=== PATIENT | female | born 1975 | race Caucasian/White ===

== ENCOUNTER 2017-12-13 08:23 | Day surgery (SDC) | payer BC ==
[~2017-12-13 08:23] MED LIST: Lactated Ringers 1,000 ML IV SCH; Midazolam 1 MG/ML 2 ML SDV ONE; Propofol 200 MG/20 ML SDV ONE; Sodium Chloride 0.9% 10 ML Syringe FLUSH PRN; Sodium Chloride 0.9% 2.5 ML Syringe FLUSH PRN; fentaNYL 100 MCG/2 ML SDV ONE
--- NOTE | 2017-12-13 09:16 | PCM.PREANE ---
Preanesthetic Assessment - Anesthesia/Transfusion/Family Hx Anesthesia History: No Prior Anesthesia Family History of Anesthesia Reaction: No Transfusion History: No Prior Transfusion(s) Intubation History: Unknown - Review of Systems General: No Symptoms Pulmonary: No Symptoms Cardiovascular: No Symptoms Gastrointestinal: Abdominal Pain, Diarrhea Neurological: No Symptoms Other: Reports: None - Physical Assessment NPO Status Date: 12/12/17 NPO Status Time: 21:00 O2 Sat by Pulse Oximetry: 98 Respiratory Rate: 16 Vital Signs: Last Vital Signs Temp 36.8 C 12/13/17 08:48 Pulse 70 12/13/17 08:48 Resp 16 12/13/17 08:48 BP 123/88 12/13/17 08:48 Pulse Ox 98 12/13/17 08:48 Height: 1.5 m Weight: 50.349 kg ASA Class: 2 Mental Status: Alert & Oriented x3 Airway Class: Mallampati = 2 Dentition: Reports: Normal Dentition Thyro-Mental Finger Breadths: 3 Mouth Opening Finger Breadths: 2 ROM/Head Extension: Full Lungs: Clear to Auscultation, Normal Respiratory Effort Cardiovascular: Regular Rate, Regular Rhythm - Lab Values: Laboratory Last Values Urine HCG, Qual NEGATIVE (NEGATIVE) 12/13/17 08:29 - Allergies Allergies/Adverse Reactions: Allergies Allergy/AdvReac Type Severity Reaction Status Date / Time diazepam [From Valium] Allergy Seizure Verified 11/23/17 16:49 - Blood Blood Available: No - Anesthesia Plan Pre-Op Medication Ordered: None - Acknowledgements Anesthesia Type Planned: MAC Pt an Appropriate Candidate for the Planned Anesthesia: Yes Alternatives and Risks of Anesthesia Discussed w Pt/Guardian: Yes Pt/Guardian Understands and Agrees with Anesthesia Plan: Yes PreAnesthesia Questionnaire Gastrointestinal History: Reports: Diverticulosis (diagnosed ove a month ago, improved on antibiotics, discomfort and loose bowel movements still present) Neurological History: Reports: Migraines, Other (See Below) Other Neuro History: gets migranes from low blood sugar, takes Aleve--- hx of motion sickness - Past Surgical History HEENT Surgical History: Reports: Oral Surgery - SUBSTANCE USE Smoking Status *Q: Never Smoker Recreational Drug Use History: No - HOME MEDS Home Medications: Home Meds L.acidoph,Paracasei, B.lactis [Probiotic] 1 cap PO DAILY 11/23/17 [History] Omeprazole 20 mg PO DAILY 11/23/17 [History] Sucralfate 1 gm PO ASDIRECTED 11/23/17 [History] - CURRENT (IN HOUSE) MEDS Current Meds: Current Medications Lactated Ringer's (Ringers, Lactated) 1,000 mls @ 125 mls/hr IV ASDIRECTED COUNTS INCLUDE 234 BEDS AT THE [facility] Last Admin: 12/13/17 08:49 Dose: 125 mls/hr Sodium Chloride (Saline Flush) 10 ml FLUSH ASDIRECTED PRN PRN Reason: Keep Vein Open Sodium Chloride (Saline Flush) 2.5 ml FLUSH ASDIRECTED PRN PRN Reason: Keep Vein Open Sodium Chloride (Saline Flush) 10 ml FLUSH ASDIRECTED PRN PRN Reason: Keep Vein Open Sodium Chloride (Saline Flush) 2.5 ml FLUSH ASDIRECTED PRN PRN Reason: Keep Vein Open Discontinued Medications Fentanyl (Sublimaze) Confirm Administered Dose 100 mcg .ROUTE .STK-MED ONE Stop: 12/13/17 07:38 Midazolam HCl (Versed 1 Mg/Ml) Confirm Administered Dose 2 mg .ROUTE .STK-MED ONE Stop: 12/13/17 07:38 Propofol (Diprivan 20 Ml) Confirm Administered Dose 200 mg .ROUTE .STK-MED ONE Stop: 12/13/17 07:38
[2017-12-13] MEDS ORDERED: Propofol 200 MG/20 ML SDV ONE (10:03)
--- NOTE | 2017-12-13 11:41 | PCM.OPNOTE ---
- General Post-Op/Procedure Note Date of Surgery/Procedure: 12/13/17 Operative Procedure(s): Diagnostic EGD and colonoscopy Findings: Small, red raised area on antrum (appears to be healing ulcer), diverticulosis Pre Op Diagnosis: Diverticulosis, epigastric pain Post-Op Diagnosis: Ulcer, diverticulosis Anesthesia Technique: MAC Condition: Good Free Text/Narrative:: Intake & Output 12/12/17 12/13/17 12/13/17 22:59 06:59 14:59 Intake Total 800 Balance 800
--- NOTE | 2017-12-14 08:49 | OR ---
SURGEON: MANSI DELEON MD DATE OF PROCEDURE: 12/13/2017 PREOPERATIVE DIAGNOSES: 1. Epigastric pain. 2. Diverticulitis. POSTOPERATIVE DIAGNOSES: 1. Lesion of the antrum of the stomach. 2. Diverticulosis. PROCEDURES PERFORMED: Diagnostic esophagogastroduodenoscopy and colonoscopy. ENDOSCOPIST: Mansi Deleon MD. ANESTHESIA: MAC. INSTRUMENTS USED: Olympus endoscope/Olympus colonoscope. EXTENT OF EXAM: To the second portion of duodenum, to the cecum. PREPARATION: Good. LIMITATIONS: None. INDICATIONS FOR EXAMINATION: The patient presents with a history of diverticulitis that was successfully treated with antibiotics earlier this fall. She also complains of some intermittent epigastric abdominal pain. The decision was made to perform a diagnostic EGD and colonoscopy. The patient and I discussed the procedures, as well as expected perioperative course. We discussed the risks, including bleeding, infection, or damage to surrounding structures, including perforation. The patient verbalized understanding and wished to proceed. PROCEDURE IN DETAIL: The patient was brought to the endoscopy suite and placed in a beach chair position. A time-out was completed verifying the patient's name, age, date of , allergies, and procedure to be performed. A bite block was placed in the patient's mouth, and monitored anesthesia care was induced. Continuous oxygen was provided via nasal cannula throughout the procedure. After adequate sedation was achieved, a well lubricated endoscope was placed in the patient's mouth, and advanced under direct visualization to the level of the second portion of the duodenum. This appeared normal and a photograph was taken. The scope was then fully withdrawn while examining the color, texture, anatomy, and integrity of the mucosa from the cecum to the anal canal. The patient's duodenum all appeared normal. The scope was brought in to the stomach, and a photograph was taken of the gastric pylorus and the GE junction. She was noted to have a small red, raised lesion just adjacent to the pylorus with a central umbilicated area with a little blood in it. This appeared to be a healing ulcer. A biopsy was taken of this and sent to Pathology. The remainder of the gastric mucosa appeared normal. Biopsies were taken of the gastric antrum, body, and fundus and sent for Helicobacter pylori testing and histologic review. The scope was brought into the distal esophagus, and a photograph was taken of the GE junction, which appeared normal. The remainder of the esophageal mucosa was normal. The scope was removed from the patient, and this portion of procedure was terminated. The patient was then placed in a left lateral decubitus position. A digital rectal exam was performed, which was normal. A well-lubricated colonoscope was inserted into the rectum and advanced under direct visualization to the level of the cecum. The cecum was identified by both visual and anatomic landmarks. A photograph was taken of the cecal cap as well as with the scope retroflexed within the cecum. The scope was then fully withdrawn while examining the color, texture, anatomy, and integrity of the mucosa from the cecum to the anal canal. The patient had a very tortuous colon, particularly in the proximal sigmoid. She was noted to have mild diverticulosis. The remainder of the exam was normal. The scope was brought into the rectum, and I attempted to retroflex it to allow visualization of the anal canal opening. Given the patient's small pelvis and small rectum, I was unable to do so safely. The scope was removed from the patient. The cecum to anus time was six minutes. CONDITION AND DISPOSITION: The patient tolerated both procedures well, and was taken to the PACU in stable condition. ENDOSCOPIC DIAGNOSES: 1. Lesion of the antrum of the stomach. 2. Diverticulosis. RECOMMENDATIONS: Continue omeprazole. She can discontinue taking sucralfate. We will see the patient in clinic in two weeks. VASILIY KITCHEN /[id number]
== END 2017-12-13 12:30 | disposition home or self-care (01) ==
LOC: MW.SDS 08:23
PROVIDERS: ATTEND Surgery
DX: K29.50 Unspecified chronic gastritis without bleeding (principal); K57.30 Diverticulosis of large intestine without perforation or abscess without bleeding; Z88.8 Allergy status to other drugs, medicaments and biological substances; Z79.899 Other long term (current) drug therapy
CPT/HCPCS: 43239; 45378; 81025; J2250; J3010; J7120; 88305; 88312; J2704

== ENCOUNTER 2018-04-18 12:05 | Day surgery (SDC) | payer BC ==
[~2018-04-18 12:05] MED LIST changes: +Lidocaine 2% 5 ML SDV ONE; -Midazolam 1 MG/ML 2 ML SDV ONE; -fentaNYL 100 MCG/2 ML SDV ONE
--- NOTE | 2018-04-18 12:32 | PCM.PREANE ---
Preanesthetic Assessment - Anesthesia/Transfusion/Family Hx Anesthesia History: Prior Anesthesia Without Reaction Family History of Anesthesia Reaction: No Transfusion History: No Prior Transfusion(s) Intubation History: Unknown - Review of Systems General: No Symptoms Pulmonary: No Symptoms Cardiovascular: No Symptoms Gastrointestinal: Abdominal Pain, Other (recent history of stomach ulcer) Other: Reports: None - Physical Assessment Height: 1.42 m Weight: 52.163 kg ASA Class: 2 Mental Status: Alert & Oriented x3 Airway Class: Mallampati = 1 Dentition: Reports: Normal Dentition Thyro-Mental Finger Breadths: 3 Mouth Opening Finger Breadths: 3 ROM/Head Extension: Full Lungs: Clear to Auscultation, Normal Respiratory Effort Cardiovascular: Regular Rate, Regular Rhythm - Allergies Allergies/Adverse Reactions: Allergies Allergy/AdvReac Type Severity Reaction Status Date / Time diazepam [From Valium] Allergy muscle Verified 04/16/18 07:47 spasms - Blood Blood Available: No - Anesthesia Plan Pre-Op Medication Ordered: None - Acknowledgements Anesthesia Type Planned: MAC Pt an Appropriate Candidate for the Planned Anesthesia: Yes Alternatives and Risks of Anesthesia Discussed w Pt/Guardian: Yes Pt/Guardian Understands and Agrees with Anesthesia Plan: Yes PreAnesthesia Questionnaire HEENT History: Reports: None Gastrointestinal History: Reports: Diverticulosis, Other (See Below) Other Gastrointestinal History: stomach ulcers 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: 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 Neurological History: Reports: Migraines, Other (See Below) Other Neuro History: gets migranes from low blood sugar, hx of motion sickness - Past Surgical History Head Surgeries/Procedures: Reports: None HEENT Surgical History: Reports: Oral Surgery GI Surgical History: Reports: Colonoscopy, EGD - SUBSTANCE USE Smoking Status *Q: Never Smoker Recreational Drug Use History: No - HOME MEDS Home Medications: Home Meds Ranitidine [Zantac] 75 mg PO DAILY 04/16/18 [History] - CURRENT (IN HOUSE) MEDS Current Meds: Current Medications Lactated Ringer's (Ringers, Lactated) 1,000 mls @ 125 mls/hr IV ASDIRECTED ZAINA Sodium Chloride (Saline Flush) 10 ml FLUSH ASDIRECTED PRN PRN Reason: Keep Vein Open Sodium Chloride (Saline Flush) 2.5 ml FLUSH ASDIRECTED PRN PRN Reason: Keep Vein Open Discontinued Medications Lidocaine (Xylocaine-Mpf 2%) Confirm Administered Dose 5 ml .ROUTE .STK-MED ONE Stop: 04/18/18 09:56 Propofol (Diprivan 20 Ml) Confirm Administered Dose 400 mg .ROUTE .STK-MED ONE Stop: 04/18/18 09:57
[2018-04-18] MEDS ORDERED: Glycopyrrolate 0.2 MG/ML SDV ONE (13:10)
--- NOTE | 2018-04-18 13:14 | PCM.OPNOTE ---
- General Post-Op/Procedure Note Date of Surgery/Procedure: 04/18/18 Operative Procedure(s): EGD Findings: Antral mass appears larger and similar in appearance to last scope with central umbilication. No biopsies taken. Pre Op Diagnosis: Antral ulcer Post-Op Diagnosis: Antral mass Anesthesia Technique: MAC Primary Surgeon: Mansi Deleon Condition: Good
--- NOTE | 2018-04-18 13:54 | PCM48HPAN ---
Post Anesthesia Note - EVALUATION WITHIN 48HRS OF ANESTHETIC Vital Signs in Normal Range: Yes Patient Participated in Evaluation: Yes Respiratory Function Stable: Yes Airway Patent: Yes Cardiovascular Function Stable: Yes Hydration Status Stable: Yes Pain Control Satisfactory: Yes Nausea and Vomiting Control Satisfactory: Yes Mental Status Recovered: Yes Resp Rate: 16
--- NOTE | 2018-04-18 14:26 | OR ---
SURGEON: ANDRÉS SHAH MD DATE OF PROCEDURE: 04/18/2018 PREOPERATIVE DIAGNOSIS: Stomach ulcer. POSTOPERATIVE DIAGNOSIS: Submucosal mass in the antrum of the stomach. PROCEDURE PERFORMED: Diagnostic esophagogastroduodenoscopy. ANESTHESIA: MAC. INSTRUMENT USED: Olympus endoscope. EXTENT OF EXAM: Second portion of duodenum. PREPARATION: Good. LIMITATIONS: None. INDICATION FOR EXAMINATION: The patient is a 42-year-old female, who presented to my clinic several months ago with complaints of epigastric abdominal pain. A diagnostic EGD was performed, which revealed mild chronic gastritis as well as an abnormal mass in the antrum of the stomach. Biopsies were taken of this, which showed normal mucosa other than some mild inflammation. I reviewed these findings with my partner, who agreed that the patient should be to perform a repeat scope in 2 to 3 months. I explained to the patient that this maybe an area of a healing ulcer or it could be a submucosal mass. She was placed on 2 months of PPI therapy. Her pain was improved. The patient came back to see me and we decided to proceed with a follow up diagnostic EGD. We discussed the procedure as well as expected perioperative course. We discussed the risks including bleeding or perforation. The patient verbalized understanding and wishes to proceed. PROCEDURE IN DETAIL: The patient was brought to the endoscopy suite and placed in a beach chair position. A time-out was completed verifying the patient's name, age, date of , allergies, and procedure to be performed. Monitored anesthesia care was induced and a bite block was placed in the patient's mouth. Continuous oxygen was provided via nasal cannula throughout the procedure. After adequate sedation was achieved, a well lubricated endoscope was placed in the patient's mouth and advanced under direct visualization to the second portion of the duodenum. This appeared normal and a photograph was taken. The scope was then fully withdrawn while examining the color, texture, anatomy, and integrity mucosa of the upper GI tract. The duodenal mucosa appeared normal. The scope was then brought into the stomach. A photograph was taken of the antrum. The patient was found to have a persistent, 2-3 cm mass in the antrum. This appeared slightly larger than during my last scope. The edges appeared smooth and there was a central umbilication. There was no evidence of any mucosal inflammation in the remainder of the stomach. Photograph was taken of the GE junction, which appeared normal. Multiple pictures were taken of the antral mass. The decision was made to not take any biopsies at this time as this appeared to be submucosal. The scope was then brought into the distal esophagus and a photograph taken of the GE junction, which appeared normal. The remainder of the esophageal mucosa was free of pathology. The scope was then removed and the procedure terminated. The patient was transferred to the PACU in stable condition. ENDOSCOPIC DIAGNOSIS: Submucosal mass in the antrum of the stomach. RECOMMENDATIONS: We will get a CT of the abdomen and pelvis and refer the patient to a paper and pulp mill worker for further workup. This could be a GID tumor, liomyoma, or leiomyosarcoma. She will require further workup since this mass as it is persistent and appears to be getting slightly larger. VASILIY KITCHEN /[id number] REBECCA
== END 2018-04-18 13:45 | disposition home or self-care (01) ==
LOC: MW.SDS 12:05
PROVIDERS: ATTEND Surgery
DX: K31.89 Other diseases of stomach and duodenum (principal); K57.32 Diverticulitis of large intestine without perforation or abscess without bleeding; Z88.8 Allergy status to other drugs, medicaments and biological substances; Z98.890 Other specified postprocedural states
CPT/HCPCS: 81025; J2704

== ENCOUNTER 2019-03-11 09:47 | Day surgery (SDC) | payer BC ==
[~2019-03-11 09:47] MED LIST changes: +Dexamethasone 4 MG/ML 5 ML MDV ONE; -Lactated Ringers 1,000 ML IV SCH; -Lidocaine 2% 5 ML SDV ONE; +Ondansetron 4 MG/2 ML SDV ONE; -Sodium Chloride 0.9% 10 ML Syringe FLUSH PRN; -Sodium Chloride 0.9% 2.5 ML Syringe FLUSH PRN; +fentaNYL 100 MCG/2 ML SDV ONE
[2019-03-11] MEDS ORDERED: Lidocaine 1% with EPINEPHrine 1:100,000 10 ML MDV ONE (10:11)
[2019-03-11] MEDS ORDERED: Lidocaine 1% with EPINEPHrine 1:100,000 20 ML MDV ONE (10:12)
--- NOTE | 2019-03-11 10:44 | PCM.PREANE ---
Preanesthetic Assessment - Anesthesia/Transfusion/Family Hx Anesthesia History: Prior Anesthesia Without Reaction Family History of Anesthesia Reaction: No Transfusion History: No Prior Transfusion(s) Intubation History: Unknown - Review of Systems General: No Symptoms Pulmonary: No Symptoms Cardiovascular: No Symptoms Gastrointestinal: No Symptoms Neurological: No Symptoms Other: Reports: None - Physical Assessment NPO Status Date: 03/10/19 O2 Sat by Pulse Oximetry: 98 Respiratory Rate: 16 Vital Signs: Last Vital Signs Temp 98.1 F 03/11/19 10:15 Pulse 63 03/11/19 10:15 Resp 16 03/11/19 10:15 BP 136/61 03/11/19 10:15 Pulse Ox 98 03/11/19 10:15 Height: 5 ft 6 in Weight: 55.338 kg ASA Class: 2 Mental Status: Alert & Oriented x3 Airway Class: Mallampati = 2 Dentition: Reports: Normal Dentition ROM/Head Extension: Full Lungs: Clear to Auscultation, Normal Respiratory Effort Cardiovascular: Regular Rate, Regular Rhythm - Allergies Allergies/Adverse Reactions: Allergies Allergy/AdvReac Type Severity Reaction Status Date / Time diazepam [From Valium] Allergy muscle Verified 03/06/19 14:17 spasms - Blood Blood Available: No - Anesthesia Plan Pre-Op Medication Ordered: None - Acknowledgements Anesthesia Type Planned: General Anesthesia Pt an Appropriate Candidate for the Planned Anesthesia: Yes Alternatives and Risks of Anesthesia Discussed w Pt/Guardian: Yes Pt/Guardian Understands and Agrees with Anesthesia Plan: Yes Additional Comments: PMH: gerd. 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 Musculoskeletal History: Reports: None Neurological History: Reports: Migraines, Other (See Below) Other Neuro History: hx of motion sickness Psychiatric History: Reports: None Endocrine/Metabolic History: Reports: Other (See Below) Other Endocrine/Metabolic History: states has pre diabetes but it is diet controlled, states was tested in the [facility], not tested recently Hematologic History: Reports: None Immunologic History: Reports: None Oncologic (Cancer) History: Reports: None Dermatologic History: Reports: None - Past Surgical History Head Surgeries/Procedures: Reports: None HEENT Surgical History: Reports: Oral Surgery Cardiovascular Surgical History: Reports: None Respiratory Surgical History: Reports: None GI Surgical History: Reports: Colonoscopy, EGD Female Surgical History: Reports: None Endocrine Surgical History: Reports: None Neurological Surgical History: Reports: None Musculoskeletal Surgical History: Reports: None - SUBSTANCE USE Smoking Status *Q: Never Smoker Recreational Drug Use History: No - HOME MEDS Home Medications: Home Meds DM Hb/PE/Acetaminophen/Chlorph [[place] Plus Cld-Cough] 1 tab PO ASDIRECTED PRN 03/06/19 [History] - CURRENT (IN HOUSE) MEDS Current Meds: Current Medications Discontinued Medications Dexamethasone (Dexamethasone) Confirm Administered Dose 20 mg .ROUTE .STK-MED ONE Stop: 03/11/19 07:05 Fentanyl (Sublimaze) Confirm Administered Dose 100 mcg .ROUTE .STK-MED ONE Stop: 03/11/19 07:05 Lidocaine HCl (Xylocaine-Mpf 1%) Confirm Administered Dose 5 mls @ as directed .ROUTE .STK-MED ONE Stop: 03/11/19 07:05 Acetaminophen (Ofirmev) Confirm Administered Dose 100 mls @ as directed IV .STK- MED ONE Stop: 03/11/19 09:09 Lidocaine/Epinephrine (Xylocaine 1% With Epinephrine 1:100,000) Confirm Administered Dose 20 ml .ROUTE .STK-MED ONE Stop: 03/11/19 10:12 Lidocaine/Epinephrine (Xylocaine 1% With Epinephrine 1:100,000) Confirm Administered Dose 20 ml .ROUTE .STK-MED ONE Stop: 03/11/19 10:13 Ondansetron HCl (Zofran) Confirm Administered Dose 4 mg .ROUTE .STK-MED ONE Stop: 03/11/19 07:05 Propofol (Diprivan 20 Ml) Confirm Administered Dose 200 mg .ROUTE .STK-MED ONE Stop: 03/11/19 07:04
[2019-03-11] MEDS ORDERED: Propofol 200 MG/20 ML SDV ONE (11:36)
[2019-03-11] MEDS ORDERED: Ketorolac 30 MG/ML SDV ONE (11:39)
[2019-03-11] MEDS ORDERED: fentaNYL 100 MCG/2 ML SDV IVPUSH PRN (11:52)
--- NOTE | 2019-03-11 11:58 | PCM.OPNOTE ---
- General Post-Op/Procedure Note Date of Surgery/Procedure: 03/11/19 Operative Procedure(s): LEEP Findings: no discrete lesions on colposcopy Pre Op Diagnosis: HGSIL pap Post-Op Diagnosis: Same Anesthesia Technique: Local, MAC Primary Surgeon: Maliha Odonnell Anesthesia Provider: Mike Hall [employer] Operator: Nicci Ochoa Pathology: ectocervical biopsy at 2 o'clock and 5 o'clock; ectocervical specimen, endocervical specimen, endocervical curettage Fluid Replacement, Intraop: 600 EBL in mLs: 10 Complications: None Known Condition: Good
--- NOTE | 2019-03-11 12:22 | PCM.POSTAN ---
POST ANESTHESIA ASSESSMENT - MENTAL STATUS Mental Status: Alert, Oriented - RESPIRATORY Respiratory Status: Respiratory Rate WNL, Airway Patent, O2 Saturation Stable - CARDIOVASCULAR CV Status: Pulse Rate WNL, Blood Pressure Stable - GASTROINTESTINAL GI Status: No Symptoms - POST OP HYDRATION Hydration Status: Adequate & Stable
--- NOTE | 2019-03-11 12:52 | PCM48HPAN ---
Post Anesthesia Note - EVALUATION WITHIN 48HRS OF ANESTHETIC Vital Signs in Normal Range: Yes Patient Participated in Evaluation: Yes Respiratory Function Stable: Yes Airway Patent: Yes Cardiovascular Function Stable: Yes Hydration Status Stable: Yes Pain Control Satisfactory: Yes Nausea and Vomiting Control Satisfactory: Yes Mental Status Recovered: Yes Resp Rate: 12
--- NOTE | 2019-03-11 18:43 | OR ---
SURGEON: Maliha Odonnell M.D. DATE OF PROCEDURE: 03/11/2019 PREOPERATIVE DIAGNOSIS: High-grade squamous intraepithelial lesion Pap, no apparent lesion. POSTOPERATIVE DIAGNOSIS: High-grade squamous intraepithelial lesion Pap, no apparent lesion. PROCEDURE PERFORMED: Loop electrode excisional procedure with cervical biopsies. ANESTHESIA: Cervical block and MAC. ESTIMATED BLOOD LOSS: Less than 10 mL. FINDINGS: On colposcopy, there was a small ulcerated lesion at 6 o'clock on the ectocervix. Otherwise, no other areas of abnormality noted after application of the acetic acid. COMPLICATIONS: None known. SPECIMENS: Cervical biopsy of the ectocervix at 2 o'clock and 5 o'clock. Ectocervical specimen of LEEP, endocervical specimen of LEEP, endocervical curettings. COMPLICATIONS: None known. DISPOSITION: Stable to recovery. BRIEF HISTORY: This is a 43-year-old female, she is a patient of Dr. Alfred. She was seen last year with a high-grade LESLEY Pap. 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 She was given option of expectant management with followup Pap versus proceeding with a LEEP at the time, and she desired expectant management. 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 Colposcopy was again performed with no significant lesions noted. Therefore, I recommended proceeding with a loop electrode excisional procedure with risks discussed including bleeding, infection, cervical incompetence, and risk of anesthesia. Understanding all these risks, she does desire to proceed. DESCRIPTION OF PROCEDURE: With the patient in dorsal lithotomy position, under adequate sedation, the speculum was placed in the vagina. The cervix was inspected after application of acetic acid with the high power of colposcopy. Again, there was a small ulcerated lesion at 6 o'clock, otherwise, no other areas of concern. Lugol solution was then applied and there was minimal nonstaining area. Biopsies were taken at the periphery of the ectocervix due to the fact that there was no significant lesion identified. With a setting of 60 pure cut, a LEEP loop was utilized to excise the ectocervix, which was labeled at 12 o'clock. A square LEEP loop was then utilized to excise a small portion of the endocervix, which was open at 12 o'clock, and finally, sharp curette followed by Cytobrush was utilized to collect an endocervical specimen above the upper LEEP specimen. The base of the specimens were then cauterized using a ball-tip cautery pure coag setting of 60. With this, there was no bleeding. Prior to initiating the procedure, a total of 10 mL of 1% lidocaine with 1:100,000 of epinephrine were injected at the 12, 5, and 7 o'clock positions. At the end the procedure, the cervix was hemostatic. The instruments removed from the vagina. Final sponge, needle, and instrument counts were reported as correct. There were no known complications. The patient was transferred to recovery in good condition. RUDDY / IMTIAZ /[id number]
== END 2019-03-11 13:20 | disposition home or self-care (01) ==
LOC: MW.SDS 09:47
PROVIDERS: ATTEND Obstetrics & Gynecology
DX: D06.0 Carcinoma in situ of endocervix (principal); Z32.02 Encounter for pregnancy test, result negative; G43.909 Migraine, unspecified, not intractable, without status migrainosus; K21.9 Gastro-esophageal reflux disease without esophagitis; Z79.1 Long term (current) use of non-steroidal anti-inflammatories (NSAID); Z79.899 Other long term (current) drug therapy; Z88.5 Allergy status to narcotic agent
CPT/HCPCS: 57460; 57505; 88305; 88307; J0131; J1100; J1885; J2001; J2405; J2704; J3010; 00940

== ENCOUNTER 2019-05-22 10:18 | Day surgery (SDC) | payer BC ==
[~2019-05-22 10:18] MED LIST changes: -Dexamethasone 4 MG/ML 5 ML MDV ONE; +Lactated Ringers 1,000 ML IV SCH; -Ondansetron 4 MG/2 ML SDV ONE; -Propofol 200 MG/20 ML SDV ONE; +Sodium Chloride 0.9% 10 ML SDV IV PRN; +Sodium Chloride 0.9% 10 ML Syringe FLUSH PRN; +Sodium Chloride 0.9% 2.5 ML Syringe FLUSH PRN; -fentaNYL 100 MCG/2 ML SDV ONE
[2019-05-22] MEDS ORDERED: Propofol 200 MG/20 ML SDV ONE (11:28)
[2019-05-22] MEDS ORDERED: fentaNYL 100 MCG/2 ML SDV ONE (11:28)
[2019-05-22] MEDS ORDERED: Midazolam 1 MG/ML 2 ML SDV ONE (11:28)
--- NOTE | 2019-05-22 11:30 | PCM.PREANE ---
Preanesthetic Assessment - Anesthesia/Transfusion/Family Hx Anesthesia History: Prior Anesthesia Without Reaction Family History of Anesthesia Reaction: No Transfusion History: No Prior Transfusion(s) Intubation History: Unknown - Review of Systems General: No Symptoms Pulmonary: No Symptoms Cardiovascular: No Symptoms Neurological: No Symptoms Other: Reports: None - Physical Assessment O2 Sat by Pulse Oximetry: 99 Respiratory Rate: 15 Vital Signs: Last Vital Signs Temp 97.2 F 05/22/19 10:54 Pulse 65 05/22/19 10:54 Resp 15 05/22/19 10:54 BP 135/81 05/22/19 10:54 Pulse Ox 99 05/22/19 10:54 Height: 4 ft 8 in Weight: 55.338 kg ASA Class: 2 Mental Status: Alert & Oriented x3 Dentition: Reports: Normal Dentition ROM/Head Extension: Full Lungs: Clear to Auscultation, Normal Respiratory Effort Cardiovascular: Regular Rate, Regular Rhythm - Lab Values: Laboratory Last Values Urine HCG, Qual NEGATIVE (NEGATIVE) 05/22/19 10:35 - Allergies Allergies/Adverse Reactions: Allergies Allergy/AdvReac Type Severity Reaction Status Date / Time diazepam [From Valium] Allergy muscle Verified 05/20/19 08:06 spasms - Acknowledgements Pt an Appropriate Candidate for the Planned Anesthesia: Yes Alternatives and Risks of Anesthesia Discussed w Pt/Guardian: Yes Pt/Guardian Understands and Agrees with Anesthesia Plan: Yes PreAnesthesia Questionnaire HEENT History: Reports: None Cardiovascular History: Reports: None Respiratory History: Reports: None Gastrointestinal History: Reports: Diverticulosis, Other (See Below) Other Gastrointestinal History: stomach ulcers Genitourinary History: Reports: None PROGRESSIVE CARE NURSE History: Reports: None Musculoskeletal History: Reports: None Neurological History: Reports: Migraines, Other (See Below) Other Neuro History: hx of motion sickness Psychiatric History: Reports: None Endocrine/Metabolic History: Reports: Other (See Below) Other Endocrine/Metabolic History: states has pre diabetes but it is diet controlled, states was tested in the [facility], not tested recently Hematologic History: Reports: None Immunologic History: Reports: None Oncologic (Cancer) History: Reports: None Dermatologic History: Reports: None - Past Surgical History Head Surgeries/Procedures: Reports: None HEENT Surgical History: Reports: Oral Surgery Cardiovascular Surgical History: Reports: None Respiratory Surgical History: Reports: None GI Surgical History: Reports: Colonoscopy, EGD Female Surgical History: Reports: None Endocrine Surgical History: Reports: None Neurological Surgical History: Reports: None Musculoskeletal Surgical History: Reports: None Oncologic Surgical History: Reports: None Dermatological Surgical History: Reports: None - SUBSTANCE USE Smoking Status *Q: Never Smoker Recreational Drug Use History: No - HOME MEDS Home Medications: Home Meds Esomeprazole Magnesium [Nexium] 40 mg PO DAILY 05/20/19 [History] Sucralfate 1 gm PO ASDIRECTED 05/20/19 [History] - CURRENT (IN HOUSE) MEDS Current Meds: Current Medications Lactated Ringer's (Ringers, Lactated) 1,000 mls @ 125 mls/hr IV ASDIRECTED ZAINA Last Admin: 05/22/19 10:54 Dose: 125 mls/hr Sodium Chloride (Saline Flush) 10 ml FLUSH ASDIRECTED PRN PRN Reason: Keep Vein Open Sodium Chloride (Saline Flush) 2.5 ml FLUSH ASDIRECTED PRN PRN Reason: Keep Vein Open Sodium Chloride (Normal Saline) 10 ml IV ASDIRECTED PRN PRN Reason: IV Use
--- NOTE | 2019-05-22 13:05 | PCM48HPAN ---
Post Anesthesia Note - EVALUATION WITHIN 48HRS OF ANESTHETIC Vital Signs in Normal Range: Yes Patient Participated in Evaluation: Yes Respiratory Function Stable: Yes Airway Patent: Yes Cardiovascular Function Stable: Yes Hydration Status Stable: Yes Pain Control Satisfactory: Yes Nausea and Vomiting Control Satisfactory: Yes Mental Status Recovered: Yes Resp Rate: 14
--- NOTE | 2019-05-22 13:32 | PCM.OPNOTE ---
- General Post-Op/Procedure Note Date of Surgery/Procedure: 05/22/19 Operative Procedure(s): EGD with biopsy Findings: Normal EGD Pre Op Diagnosis: History of PUD, post prandial abdominal pain Post-Op Diagnosis: Normal EGD Anesthesia Technique: MALINA Primary Surgeon: Mansi Deleon Condition: Good Free Text/Narrative:: Intake & Output 05/21/19 05/22/19 05/22/19 22:59 06:59 14:59 Intake Total 700 Balance 700
--- NOTE | 2019-05-23 12:40 | OR ---
SURGEON: MANSI DELEON MD DATE OF PROCEDURE: 05/22/2019 PREOPERATIVE DIAGNOSIS: History of peptic ulcer disease. POSTOPERATIVE DIAGNOSIS: Normal esophagogastroduodenoscopy. PROCEDURE PERFORMED: Diagnostic esophagogastroduodenoscopy. PRIMARY SURGEON: Endoscopist, Mansi Deleon MD. ANESTHESIA: MAC. INSTRUMENT USED: Olympus endoscope. EXTENT OF EXAM: To the second portion of duodenum. PREPARATION: Good. LIMITATIONS: None. INDICATION FOR EXAMINATION: The patient is a 43-year-old female who presents for a repeat EGD. I scoped her approximately 1 year ago and found an ulcer in the antrum of her stomach as well as a possible gastric mass. She underwent further workup for this and the gastric mass was not present on followup EGD. The patient and I discussed the need for a repeat EGD since she is starting to have some epigastric abdominal pain again. I explained the procedure, expected perioperative course, and risks including bleeding, infection, or damage to surrounding structures including perforation. The patient verbalized understanding and wishes to proceed. PROCEDURE IN DETAIL: The patient was brought into the endoscopy suite and placed in a beach chair position. A time-out was completed verifying the patient's name, age, date of , allergies, and procedure to be performed. Monitored anesthesia care was induced and a bite block was placed in the patient's mouth. Continuous oxygen was provided via nasal cannula throughout the procedure. After adequate sedation was achieved, a well lubricated endoscope was placed in the patient's mouth and advanced under direct visualization to the second portion of duodenum. This appeared normal and a photograph was taken. The scope was then fully withdrawn while examining the color, texture, anatomy, and integrity of the mucosa of the upper GI tract. The duodenum was free of pathology. The scope was then brought into the stomach and a photograph was taken of the pylorus as well as the GE junction. Both appeared normal. I saw no evidence of a gastric mass in the antrum. The gastric mucosa was free of gross inflammation or ulceration. Biopsies were taken of the gastric antrum, body, and fundus, and sent for histologic review and H. pylori testing. The scope was then brought into the distal esophagus and a photograph was taken of the Z-line. This appeared normal. The remainder of the esophageal mucosa was normal. The scope was removed and the procedure terminated. The patient tolerated the procedure well and was transferred to the PACU in stable condition. ENDOSCOPIC DIAGNOSIS: Normal esophagogastroduodenoscopy. RECOMMENDATIONS: Follow up in clinic in 2 weeks to discuss the biopsy results and any further treatment. VASILIY KITCHEN /[id number]
== END 2019-05-22 13:23 | disposition home or self-care (01) ==
LOC: MW.SDS 10:18
PROVIDERS: ATTEND Surgery
DX: K31.9 Disease of stomach and duodenum, unspecified (principal); R10.13 Epigastric pain; G89.29 Other chronic pain; Z87.11 Personal history of peptic ulcer disease; Z79.899 Other long term (current) drug therapy; Z88.8 Allergy status to other drugs, medicaments and biological substances
CPT/HCPCS: 81025; J2001; J2250; J2704; J3010; J7120